=== PATIENT | female | born 1980 | race Caucasian/White ===

== ENCOUNTER 2016-09-18 15:09 | Emergency (ER) | payer OTHER ==
[2016-09-18 15:40] VITALS: BP 131/90
--- NOTE | 2016-09-18 16:29 | UC ---
Complaint Female HPI - HPI Summary HPI Summary: FOUR HOURS OF URINARY PRESSURE FULLNESS, BURNING WITH URINATION, FREQUENCY, AND BLOOD IN URINE. MILD LOW BACK PAIN. LAST UTI WAS LAST YEAR. - History Of Current Complaint Chief Complaint: UCGU Stated Complaint: URINARY Time Seen by Provider: 09/18/16 15:40 Hx Obtained From: Patient Hx Last Menstrual Period: 09/08/16 ?: Yes Onset/Duration: Sudden Onset, Lasting Hours, Still Present Timing: Intermittent Severity Initially: Moderate Severity Currently: Moderate Pain Intensity: 8 Pain Scale Used: 0-10 Numeric Character: Dull, Burning Aggravating Factor(s): Urination Associated Signs And Symptoms: Positive: Fever, Back Pain. Negative: Vaginal Bleeding/Discharge, Vaginal Discharge, Nausea, Vomiting(# Of Episodes =), Genital Swelling, Genital Blisters, Retained Foregin Body (Specify) Related Hx: Similar Episode/Dx as: - ONE YEAR AGO - Risk Factors Ectopic Risk Factor: Negative - Allergies/Home Medications Allergies/Adverse Reactions: Allergies Allergy/AdvReac Type Severity Reaction Status Date / Time No Known Allergies Allergy Verified 09/18/16 15:40 Home Medications: Home Medications metFORMIN* [Glucophage 500 MG TAB *] 500 mg PO DAILY 09/18/16 [History Confirmed 09/18/16] PMH/Surg Hx/FS Hx/Imm Hx Previously Healthy: Yes - Surgical History Surgical History: Yes Surgery Procedure, Year, and Place: Breast reduction - Family History Known Family History: Negative: Renal Disease - Social History Occupation: Employed Full-time Lives: With Family Alcohol Use: Rare Substance Use Type: None Smoking Status (MU): Never Smoked Tobacco Review of Systems Constitutional: Negative Skin: Negative Eyes: Negative ENT: Negative Respiratory: Negative Cardiovascular: Negative Gastrointestinal: Negative Genitourinary: Dysuria, Hematuria, Frequency, Urgency Motor: Negative Neurovascular: Negative Musculoskeletal: Negative Neurological: Negative Psychological: Negative All Other Systems Reviewed And Are Negative: Yes Physical Exam Triage Information Reviewed: Yes Appearance: Well-Appearing, No Pain Distress, Well-Nourished Vital Signs: Initial Vital Signs Temp 99.9 F 09/18/16 15:36 Pulse 102 09/18/16 15:36 Resp 17 09/18/16 15:36 BP 131/90 09/18/16 15:36 Pulse Ox 99 09/18/16 15:36 Vital Signs Reviewed: Yes Eye Exam: Normal ENT Exam: Normal ENT: Positive: Normal ENT inspection, Hearing grossly normal, Pharynx normal, TMs normal Dental Exam: Normal Neck exam: Normal Neck: Positive: Supple Respiratory Exam: Normal Respiratory: Positive: Chest non-tender, Lungs clear, Normal breath sounds, No respiratory distress, No accessory muscle use Cardiovascular Exam: Normal Cardiovascular: Positive: RRR, No Murmur, Pulses Normal Abdomen Description: Positive: No Organomegaly, Soft, CVA Tenderness (R). Negative: Nontender - SUPRAPUBIC TENDERNESS Bowel Sounds: Positive: Present Musculoskeletal Exam: Normal Musculoskeletal: Positive: Strength Intact, ROM Intact Neurological Exam: Normal Psychological Exam: Normal Skin Exam: Normal Complaint Female Dx - Differential Dx/Diagnosis Differential Diagnosis/HQI/PQRI: Cervicitis, Urinary Tract Infection Provider Diagnoses: URINARY TRACT INFECTION Discharge - Discharge Plan Condition: Stable Disposition: HOME Prescriptions: Phenazopyridine TAB* [Pyridium 100 mg TAB*] 100 mg PO TID #15 tab Sulfamethox/Trimethoprim DS* [Bactrim DS 800/160 TAB*] 1 tab PO BID #10 tab Patient Education Materials: Urinary Tract Infection in Women (ED) Referrals: Cortney Irwin MD [Primary Care Provider] -
== END 2016-09-18 16:10 | disposition home or self-care (01) ==
LOC: UCCORT 15:09
DX: N39.0 Urinary tract infection, site not specified (principal); R31.9 Hematuria, unspecified; Z87.440 Personal history of urinary (tract) infections; Z32.02 Encounter for pregnancy test, result negative
CPT/HCPCS: 81003; 84702; 87086; 99212; G0463

== ENCOUNTER 2018-05-10 19:55 | Emergency (ER) | payer OTHER ==
[2018-05-10 20:14] VITALS: BP 145/95
[2018-05-10] MEDS ORDERED: Albuterol HFA INHALER* 8 gm MDI INH ONE (21:21)
--- NOTE | 2018-05-10 21:26 | UC ---
UC General HPI - HPI Summary HPI Summary: began last pm. pt c/o nasal congestion, sore throat and cough with chest congestion. no sob, wheezing or hx of asthma. feels feverish and lungs feel tight. - History of Current Complaint Chief Complaint: UCRespiratory Stated Complaint: COUGH/CONGESTION Time Seen by Provider: 05/10/18 21:10 Hx Obtained From: Patient Hx Last Menstrual Period: finished 05/08/18 Onset/Duration: Gradual Onset Timing: Constant Pain Intensity: 3 Associated Signs & Symptoms: Positive: Cough. Negative: Chest Pain, Diarrhea, Vomiting, Wheezing - Allergy/Home Medications Allergies/Adverse Reactions: Allergies Allergy/AdvReac Type Severity Reaction Status Date / Time No Known Allergies Allergy Verified 05/10/18 20:09 Home Medications: Home Medications NK [No Home Medications Reported] 05/10/18 [History Confirmed 05/10/18] PMH/Surg Hx/FS Hx/Imm Hx Previously Healthy: Yes - Surgical History Surgical History: Yes Surgery Procedure, Year, and Place: Breast reduction. tubal ligation - Family History Known Family History: Negative: Renal Disease - Social History Lives: With Family Alcohol Use: Occasionally Substance Use Type: None Smoking Status (MU): Never Smoked Tobacco - Immunization History Vaccination Up to Date: Yes Review of Systems All Other Systems Reviewed And Are Negative: Yes Constitutional: Positive: Fever - subjective Skin: Positive: Negative Eyes: Positive: Negative ENT: Positive: Sore Throat, Nasal Discharge, Sinus Congestion, Sinus Pain/ Tenderness Respiratory: Positive: Cough Cardiovascular: Positive: Negative Gastrointestinal: Positive: Negative Genitourinary: Positive: Negative Motor: Positive: Negative Neurovascular: Positive: Negative Musculoskeletal: Positive: Negative Neurological: Positive: Negative Psychological: Positive: Negative Physical Exam Triage Information Reviewed: Yes Appearance: Well-Appearing Vital Signs: Initial Vital Signs Temp 97.9 F 05/10/18 20:09 Pulse 84 05/10/18 20:09 Resp 16 05/10/18 20:09 BP 145/95 05/10/18 20:09 Pulse Ox 100 05/10/18 20:09 Vital Signs Reviewed: Yes Eyes: Positive: Conjunctiva Clear ENT: Positive: Pharyngeal erythema - slight, Nasal congestion, TMs normal, Uvula midline. Negative: Nasal drainage, Trismus, Muffled voice, Hoarse voice, Sinus tenderness Neck: Positive: Supple, Nontender, Enlarged Nodes @ - peritonsilar Respiratory: Positive: Lungs clear, No respiratory distress, Other: - Frequent NPC Cardiovascular: Positive: RRR, No Murmur Abdomen Description: Positive: Nontender, No Organomegaly, Soft. Negative: Distended, Guarding Bowel Sounds: Positive: Present Musculoskeletal: Positive: ROM Intact Neurological: Positive: Alert Psychological: Positive: Age Appropriate Behavior Skin Exam: Normal Diagnostics - Laboratory Diagnostic Studies Completed/Ordered: rapid strep=neg Course/Dx - Course Course Of Treatment: rapid strep=neg. exam c/w uri and bronchitis. no concern for pneumonia. No hx HTN, BP illness/visit related - Diagnoses Provider Diagnosis: URI (upper respiratory infection), Pharyngitis, Bronchitis Discharge - Sign-Out/Discharge Documenting (check all that apply): Patient Departure All imaging exams completed and their final reports reviewed: No Studies - Discharge Plan Condition: Stable Disposition: HOME Patient Education Materials: Pharyngitis (ED), Upper Respiratory Infection (ED) , Acute Bronchitis (ED) Referrals: Elena Barrett MD [Primary Care Provider] - 5 Days Additional Instructions: FOLLOW UP IN 5 DAYS IF NOT BETTER OR SOONER IF WORSE. USE THE ALBUTEROL INHALER 2 PUFFS EVERY 6 HOURS. - Billing Disposition and Condition Condition: STABLE Disposition: Home - Attestation Statements Provider Attestation: I was available for consult. This patient was seen by the MARTIR. The patient was not presented to, seen by, or examined by me. EK
== END 2018-05-10 21:44 | disposition home or self-care (01) ==
LOC: UCCORT 19:55
DX: J06.9 Acute upper respiratory infection, unspecified (principal); J02.9 Acute pharyngitis, unspecified; J40 Bronchitis, not specified as acute or chronic
CPT/HCPCS: 87651; 99212; A9270-GY; G0463

== ENCOUNTER 2018-09-27 19:16 | Emergency (ER) | payer OTHER ==
[2018-09-27 19:37] VITALS: BP 147/95
--- NOTE | 2018-09-27 19:51 | UC ---
UC General HPI - HPI Summary HPI Summary: pt is c/o urgent-burning urination since this am. she notes a little itching as well. denies risk/concern for std. hx uti's and yeast infections which have felt similar to this. no fever, abdominal pain or flank pain. pt has been drink lots of water. - History of Current Complaint Chief Complaint: UCGU Stated Complaint: POSSIBLE UTI Time Seen by Provider: 09/27/18 19:30 Hx Obtained From: Patient Hx Last Menstrual Period: 09/14/18 has had tubal Onset/Duration: Gradual Onset Pain Intensity: 0 - Allergy/Home Medications Allergies/Adverse Reactions: Allergies Allergy/AdvReac Type Severity Reaction Status Date / Time No Known Allergies Allergy Verified 09/27/18 19:37 Home Medications: Home Medications metFORMIN* [Glucophage 500 MG TAB *] 500 mg PO BID 09/27/18 [History Confirmed 09/27/18] PMH/Surg Hx/FS Hx/Imm Hx - Additional Past Medical History Additional PMH: sepsis from surgery, uti's Endocrine History: Diabetes - gestational - Surgical History Surgical History: Yes Surgery Procedure, Year, and Place: Breast reduction. tubal ligation - Family History Known Family History: Negative: Renal Disease - Social History Alcohol Use: Occasionally Substance Use Type: None Smoking Status (MU): Never Smoked Tobacco - Immunization History Vaccination Up to Date: Yes Review of Systems All Other Systems Reviewed And Are Negative: Yes Constitutional: Negative: Fever Gastrointestinal: Negative: Abdominal Pain Genitourinary: Positive: Dysuria, Urgency, Vaginal/Penile Itching. Negative: Vaginal/Penile Burning, Vaginal/Penile Discharge, Vaginal/Penile Pain, Vaginal/ Penile Tenderness, Ulceration/Lesion, Abnormal Bleeding Physical Exam Triage Information Reviewed: Yes Appearance: Well-Appearing Vital Signs: Initial Vital Signs Temp 98.2 F 09/27/18 19:34 Pulse 96 09/27/18 19:34 Resp 16 09/27/18 19:34 BP 147/95 09/27/18 19:34 Pulse Ox 100 09/27/18 19:34 Vital Signs Reviewed: Yes Eyes: Positive: Conjunctiva Clear ENT: Positive: Normal ENT inspection Neck: Positive: Supple, Nontender, No Lymphadenopathy Respiratory: Positive: Lungs clear, Normal breath sounds Cardiovascular: Positive: RRR, No Murmur Abdomen Description: Positive: Nontender, No Organomegaly, Soft. Negative: CVA Tenderness (R), CVA Tenderness (L), Distended, Guarding Bowel Sounds: Positive: Present Pelvic Exam: Positive: Other - pt declined, not necessary Musculoskeletal: Positive: ROM Intact Neurological: Positive: Alert Psychological: Positive: Age Appropriate Behavior Skin Exam: Normal Diagnostics - Laboratory Lab Results: u/a= 1+ leukocytes. culture pending. Course/Dx - Differential Dx - Multi-Symptom Differential Diagnoses: Other - pt denies risk/concern std and declined a pelvis exam. u/a=1+leukocytes with a culture pending. will tx for presumptive uti and cover for antibiotic induced yeast infection. BP d/w pt. she will have a recheck during her f/u with pcp early next week. - Diagnoses Provider Diagnosis: Dysuria Discharge - Sign-Out/Discharge Documenting (check all that apply): Patient Departure All imaging exams completed and their final reports reviewed: No Studies - Discharge Plan Condition: Stable Disposition: HOME Prescriptions: Fluconazole 150 MG TAB* [Diflucan 150 MG TAB*] 150 mg PO ONCE #1 tablet Nitrofurantoin Monohyd/M-Cryst [Macrobid 100 mg Capsule] 100 mg PO BID 5 Days # 10 cap Patient Education Materials: Dysuria (ED), Hypertension (ED) Referrals: Elena Austin MD [Primary Care Provider] - Additional Instructions: FOLLOW UP WITH DR AUSTIN SCHEDULED EARLY NEXT WEEK. - Billing Disposition and Condition Condition: STABLE Disposition: Home
== END 2018-09-27 20:00 | disposition home or self-care (01) ==
LOC: UCCORT 19:16
DX: R30.0 Dysuria (principal); Z86.32 Personal history of gestational diabetes
CPT/HCPCS: 81003; 87086; 99212; G0463